=== PATIENT | female | born 1930 | race Caucasian/White ===

== ENCOUNTER 2016-10-20 15:41 | Outpatient (CLI) | payer MEDICARE, BC ==
[~2016-10-20 15:41] MED LIST: AMARYL; AMOXICILLIN 8751 TAB PO; ASPIRIN 81M81 MG/TA2 PO; BETAPACE 120MG120 MG PO; BUMEX 1MG TA1 MG/TA1 PO; COREG 25MG25 MG/TAB PO; COREG 3.123.125 MG/T PO; COREG 6.256.25 MG/TA PO; COREG12.5 MG PO; COUMADIN 1MG1 MG/TAB PO; COUMADIN 2MG2 MG/TAB PO; COUMADIN 5MG5 MG/TAB PO; COUMADIN4 MG PO; ECOTRIN325 MG PO; FORTAMET500 MG PO; GLUCOPHAGE500 MG/TAB PO; HCTZ 25MG25 MG PO; KLOR-CON M2020 MEQ PO; LAMICTAL 25MG T25 MG PO; LAMICTAL150 MG PO; LASIX 20MG TABL20 MG PO; LASIX 80MG TABL80 MG PO; LEVAQUIN 2250 MG/TAB PO; LISINOPRIL; MULTAQ400 MG PO; NEURONTIN300 MG/CAP PO; PACERONE200 MG PO; PACERONE400 MG PO; PERCOCET 325 MG1 TA2 PO; PLAVIX 75MG TAB75 MG PO; PROAIR HFA0.09 MG/AC IH; TRADJENTA5 MG PO; ULTRAM 50MG TAB50 MG PO; VYTORIN; ZAROXOLYN 2.52.5 MG PO; ZESTRIL40 MG PO; ZITHROMAX 250M250 MG PO; ZOCOR 80MG80 MG PO
[2016-10-20] MEDS ORDERED: LIPITOR 40MG TA40 MG PO (17:02)
[2016-10-20] MEDS ORDERED: VITAMIN D 50,1.25 MG PO (17:05)
[2016-10-20 17:10] VITALS: BP 141/55; PULSE 75; TEMP 98.7
[2016-10-20 17:51] LABS: PH 5 (5-8); SQUAMOUS EPITHELIAL 0-2 /hpf; URINE APPEARANCE Clear; URINE BACTERIA None Seen /hpf; URINE BILIRUBIN Negative (NEGATIVE); URINE BLOOD Negative (NEGATIVE); URINE COLOR Yellow; URINE GLUCOSE Negative (NEGATIVE); URINE KETONE Negative (NEGATIVE); URINE RBC None Seen /hpf; URINE UROBILINOGEN Negative (NEGATIVE); URINE WBC 0-2 /hpf
== END 2016-10-20 17:28 | disposition home or self-care (01) ==
LOC: EUO 15:41
PROVIDERS: Orthopaedic Surgery
DX: Z01.818 Encounter for other preprocedural examination (principal); R79.1 Abnormal coagulation profile
CPT/HCPCS: J3430

== ENCOUNTER → 2016-10-22 | Outpatient (REF) ==
[~2016-10-22] MED LIST changes: +ALMACONE 360 M360 ML PO; +DULCOLAX S10 MG/SUPP RC; +IMODIUM 2MG CAPS2 MG PO; +K-DUR20 MEQ PO; +LASIX 40MG TABL40 MG PO; +LIPITOR 40MG TA40 MG PO; +MILK OF MA400 MG/52 PO; +NORCO 325 MG-7.1 TAB PO; +TYLENOL 325MG325 MG PO; +TYLENOL SU650 MG/SUP RC; +VITAMIN D 50,1.25 MG PO; +ZAROXOLYN5 MG PO
[2016-10-22 06:16] LABS: INR 1.3 (0.8-3.0); PROTHROMBIN TIME 14.2 SECONDS (9.7-12.8)
== END ==
LOC: ZMSC 06:07
PROVIDERS: Orthopaedic Surgery
DX: Z01.89 Encounter for other specified special examinations (principal)

== ENCOUNTER → 2016-10-23 | Outpatient (REF) ==
[2016-10-23 05:05] LABS: INR 1.3 (0.8-3.0); PROTHROMBIN TIME 14.3 SECONDS (9.7-12.8)
== END ==
LOC: ZMSC 04:58
PROVIDERS: Orthopaedic Surgery
DX: Z01.89 Encounter for other specified special examinations (principal)

== ENCOUNTER → 2016-10-24 | Outpatient (REF) ==
[2016-10-24 04:26] LABS: INR 1.3 (0.8-3.0); PROTHROMBIN TIME 14.6 SECONDS (9.7-12.8)
== END ==
LOC: ZMSC 04:14
PROVIDERS: Orthopaedic Surgery
DX: Z01.89 Encounter for other specified special examinations (principal)

== ENCOUNTER 2016-11-03 09:53 | Inpatient (IN) | payer MEDICARE, BC ==
[~2016-11-03] VITALS: Ht 162.6 cm; Wt 79.3 kg
[2016-11-03] VITALS (556 sets, daily range): BP systolic 113–138; BP diastolic 49–68; PULSE 14–75; TEMP 97.7–98.4; O2SAT 75–100
[~2016-11-03 09:53] MED LIST changes: -ALMACONE 360 M360 ML PO; -DULCOLAX S10 MG/SUPP RC; -IMODIUM 2MG CAPS2 MG PO; -K-DUR20 MEQ PO; -LASIX 40MG TABL40 MG PO; -MILK OF MA400 MG/52 PO; -NORCO 325 MG-7.1 TAB PO; -TYLENOL 325MG325 MG PO; -TYLENOL SU650 MG/SUP RC; -ZAROXOLYN5 MG PO
[2016-11-03] MEDS ORDERED: NORCO 325 MG-7.1 TAB PO (10:13)
[2016-11-03] MEDS ORDERED: COUMADIN 5MG5 MG/TAB PO (10:13)
[2016-11-03 10:18] LABS: ARTERIAL BLD GAS O2 SATURATION 99.2 % (92-100); ARTERIAL BLD GAS TCO2 CT 37.9; ARTERIAL BLOOD GAS BASE EXCESS 10.1 (-2-2); ARTERIAL BLOOD GAS HCO3 36.2 meq/L (22-26); ARTERIAL BLOOD GAS pH 7.43 (7.35-7.45); OXYHEMOGLOBIN 98.1 %
[2016-11-03 10:20] LABS: ALLEN TEST YES; ALLENS TEST RESULT PASS; ATS? YES
[2016-11-03 10:43] LABS: BASO % 0.3 % (0.0-2.0); EOS # 0.2 (0.0-0.7); EOS % 2.1 % (0-4.0); GRAN # 6.1 (1.4-6.5); GRAN % 82.9 % (42.2-75.2); HEMATOCRIT 49.6 % (37.0-47.0); HEMOGLOBIN 15.5 g/dl (12.5-16.0); LYMPH # 0.5 (1.2-3.4); MEAN CELL VOLUME 98 fl (80.0-100.0); MEAN CORPUSCULAR HEMOGLOBIN 31 pg (27.0-31.0); MEAN CORPUSCULAR HGB CONC 31 g/dl (33.0-37.0); MEAN PLATELET VOLUME 10.5 fl (7.4-10.4); MONO # 0.5 (0.1-0.6); PLATELET COUNT 235 K/mm3 (130-400); RED BLOOD COUNT 5.04 M/mm3 (4.10-5.30); REDCELL DISTRIBUTION WIDTH-CV 15.9 % (11.5-14.5); WHITE BLOOD COUNT 7.3 K/mm3 (4.8-10.8)
[2016-11-03 10:45] LABS: ADJUSTED CALCIUM 9.1 mg/dL (8.4-10.2); ALBUMIN 3.5 gm/dL (3.5-5.0); BILIRUBIN,TOTAL 1.1 mg/dL (0.0-1.0); CALCIUM 8.7 mg/dL (8.4-10.2); CREATININE, serum 1.07 mg/dL (0.52-1.25); INR 3.1 (0.8-3.0); POTASSIUM 4.3 mmol/L (3.4-5.0); PROTHROMBIN TIME 35.6 SECONDS (9.7-12.8); TOTAL PROTEIN 6.9 gm/dL (6.4-8.2)
[2016-11-03 10:57] LABS: TROPONIN-I 0.022 ng/mL (0.000-0.034)
[2016-11-03] MEDS ORDERED: ALMACONE 360 M360 ML PO (15:08)
[2016-11-03] MEDS ORDERED: MILK OF MA400 MG/52 PO (15:08)
[2016-11-03] MEDS ORDERED: DULCOLAX S10 MG/SUPP RC (15:09)
[2016-11-03] MEDS ORDERED: TYLENOL SU650 MG/SUP RC (15:10)
[2016-11-03] MEDS ORDERED: TYLENOL 325MG325 MG PO (15:11)
[2016-11-03] MEDS ORDERED: IMODIUM 2MG CAPS2 MG PO (15:12)
[2016-11-04] VITALS (1211 sets, daily range): BP systolic 105–132; BP diastolic 43–83; PULSE 69–79; TEMP 97.2–98.9; O2SAT 76–100
[2016-11-04 05:45] LABS: MEAN CELL VOLUME 99 fl (80.0-100.0); MEAN CORPUSCULAR HGB CONC 31 g/dl (33.0-37.0); MEAN PLATELET VOLUME 10.6 fl (7.4-10.4); PLATELET COUNT 283 K/mm3 (130-400); RED BLOOD COUNT 3.35 M/mm3 (4.10-5.30); REDCELL DISTRIBUTION WIDTH-CV 15.7 % (11.5-14.5); WHITE BLOOD COUNT 9.4 K/mm3 (4.8-10.8)
[2016-11-04 05:47] LABS: HEMATOCRIT 33.1 % (37.0-47.0); HEMOGLOBIN 10.4 g/dl (12.5-16.0); MEAN CORPUSCULAR HEMOGLOBIN 31 pg (27.0-31.0)
[2016-11-04 05:57] LABS: CALCIUM 8.4 mg/dL (8.4-10.2); CREATININE, serum 1.2 mg/dL (0.52-1.25); MAGNESIUM 2.4 mg/dL (1.6-2.3); POTASSIUM 3.8 mmol/L (3.4-5.0)
[2016-11-04 10:59] LABS: C-REACTIVE PROTEIN 3.6 mg/dL (0.0-0.9)
[2016-11-04 13:16] LABS: INR 3.5 (0.8-3.0); PROTHROMBIN TIME 40.6 SECONDS (9.7-12.8)
[2016-11-05] VITALS (692 sets, daily range): BP systolic 107–124; BP diastolic 47–67; PULSE 69–78; TEMP 97.1–98.7; O2SAT 82–100
[2016-11-05 05:48] LABS: MEAN CELL VOLUME 99 fl (80.0-100.0); MEAN CORPUSCULAR HGB CONC 31 g/dl (33.0-37.0); MEAN PLATELET VOLUME 10.4 fl (7.4-10.4); PLATELET COUNT 322 K/mm3 (130-400); REDCELL DISTRIBUTION WIDTH-CV 15.7 % (11.5-14.5); WHITE BLOOD COUNT 8.5 K/mm3 (4.8-10.8)
[2016-11-05 05:50] LABS: HEMATOCRIT 32.8 % (37.0-47.0); HEMOGLOBIN 10.3 g/dl (12.5-16.0); MEAN CORPUSCULAR HEMOGLOBIN 31 pg (27.0-31.0)
[2016-11-05 05:53] LABS: INR 3.7 (0.8-3.0); PROTHROMBIN TIME 42.4 SECONDS (9.7-12.8)
[2016-11-05 06:16] LABS: CALCIUM 8.7 mg/dL (8.4-10.2); CREATININE, serum 1.18 mg/dL (0.52-1.25); POTASSIUM 3.9 mmol/L (3.4-5.0)
[2016-11-06] VITALS (7 sets, daily range): BP systolic 95–131; BP diastolic 41–76; PULSE 68–70; TEMP 98.1–98.6
[2016-11-06 15:19] LABS: INR 2.7 (0.8-3.0); PROTHROMBIN TIME 31.1 SECONDS (9.7-12.8)
[2016-11-07 03:59] VITALS: BP 100/75; PULSE 98; TEMP 98.9
[2016-11-07 07:43] VITALS: BP 112/79; PULSE 71; TEMP 98.2
[2016-11-07] MEDS ORDERED: NORCO 325 MG-7.1 TAB PO (08:17)
[2016-11-07] MEDS ORDERED: KLOR-CON M2020 MEQ PO (08:18)
[2016-11-07 11:18] VITALS: BP 112/79; PULSE 71; TEMP 98.2
== END 2016-11-07 11:50 | DRG 291 ==
LOC: COL.ER 09:53 → IMCU 13:03 → MEDICAL 11-05 14:35
PROVIDERS: Emergency Medicine; Family Medicine; Internal Medicine; Internal Medicine Pulmonary Disease
DX: I13.0 Hypertensive heart and chronic kidney disease with heart failure and stage 1 through stage 4 chronic kidney disease, or unspecified chronic kidney disease (principal); I50.31 Acute diastolic (congestive) heart failure; J96.01 Acute respiratory failure with hypoxia; E11.22 Type 2 diabetes mellitus with diabetic chronic kidney disease; N18.3 Chronic kidney disease, stage 3 (moderate); I27.2 Other secondary pulmonary hypertension; Z95.1 Presence of aortocoronary bypass graft; Z85.3 Personal history of malignant neoplasm of breast; Z85.42 Personal history of malignant neoplasm of other parts of uterus; Z95.2 Presence of prosthetic heart valve; Z79.01 Long term (current) use of anticoagulants
CPT/HCPCS: 99223-AI; 99232-AI; 99233-AI; 99239; A4315; J1815; J1940; Q9967

== ENCOUNTER 2016-12-14 08:59 | Inpatient (IN) | payer MEDICARE, BC ==
[2016-12-14] VITALS (634 sets, daily range): BP systolic 100–112; BP diastolic 48–55; PULSE 69–71; TEMP 98.4–98.9; O2SAT 94–100
[~2016-12-14] VITALS: Ht 165.1 cm; Wt 76.8 kg
[~2016-12-14 08:59] MED LIST changes: +ALMACONE 360 M360 ML PO; +DULCOLAX S10 MG/SUPP RC; +IMODIUM 2MG CAPS2 MG PO; +MILK OF MA400 MG/52 PO; +NORCO 325 MG-7.1 TAB PO; +TYLENOL 325MG325 MG PO; +TYLENOL SU650 MG/SUP RC
[2016-12-14 09:41] LABS: BASO % 0.2 % (0.0-2.0); GRAN # 10.7 (1.4-6.5); GRAN % 88.3 % (42.2-75.2); LYMPH # 0.5 (1.2-3.4); LYMPH % 4.4 % (20.0-51.0); MEAN CELL VOLUME 94 fl (80.0-100.0); MEAN CORPUSCULAR HGB CONC 34 g/dl (33.0-37.0); MEAN PLATELET VOLUME 11.4 fl (7.4-10.4); MONO # 0.8 (0.1-0.6); MONO % 6.7 % (1.7-9.3); PLATELET COUNT 195 K/mm3 (130-400); RED BLOOD COUNT 3.66 M/mm3 (4.10-5.30); REDCELL DISTRIBUTION WIDTH-CV 15.1 % (11.5-14.5); WHITE BLOOD COUNT 12.1 K/mm3 (4.8-10.8)
[2016-12-14 09:42] LABS: HEMATOCRIT 34.4 % (37.0-47.0); HEMOGLOBIN 11.6 g/dl (12.5-16.0); MEAN CORPUSCULAR HEMOGLOBIN 32 pg (27.0-31.0)
[2016-12-14 09:48] LABS: PARTIAL THROMBOPLASTIN TIME 51.4 SECONDS (26.0-37.0)
[2016-12-14 09:52] LABS: ADJUSTED CALCIUM 9.2 mg/dL (8.4-10.2); ALBUMIN 3.5 gm/dL (3.5-5.0); BILIRUBIN,TOTAL 0.8 mg/dL (0.0-1.0); CALCIUM 8.8 mg/dL (8.4-10.2); CREATININE, serum 1.44 mg/dL (0.52-1.25); TOTAL PROTEIN 6.9 gm/dL (6.4-8.2)
[2016-12-14 09:56] LABS: INR 5.7 (0.8-3.0); PROTHROMBIN TIME 67.5 SECONDS (9.7-12.8)
[2016-12-14 10:12] LABS: TROPONIN-I 0.122 ng/mL (0.000-0.034)
[2016-12-14] MEDS ORDERED: TRADJENTA5 MG PO (10:37)
[2016-12-14 10:42] LABS: PH 5 (5-8); SQUAMOUS EPITHELIAL 0-2 /hpf; URINE APPEARANCE Hazy; URINE BACTERIA Rare /hpf; URINE BILIRUBIN Negative (NEGATIVE); URINE BLOOD Negative (NEGATIVE); URINE COLOR Yellow; URINE GLUCOSE Negative (NEGATIVE); URINE KETONE Negative (NEGATIVE); URINE UROBILINOGEN Negative (NEGATIVE)
[2016-12-14 10:43] LABS: URINE WBC >50 /hpf
[2016-12-14] MEDS ORDERED: K-DUR20 MEQ PO (14:08)
[2016-12-14] MEDS ORDERED: ZAROXOLYN5 MG PO (16:30)
[2016-12-15] VITALS (280 sets, daily range): BP systolic 111–127; BP diastolic 48–87; PULSE 68–84; TEMP 97.8–99.1; O2SAT 89–98
[2016-12-15 08:40] LABS: MEAN CELL VOLUME 95 fl (80.0-100.0); MEAN CORPUSCULAR HGB CONC 33 g/dl (33.0-37.0); MEAN PLATELET VOLUME 11.2 fl (7.4-10.4); PLATELET COUNT 183 K/mm3 (130-400); RED BLOOD COUNT 3.67 M/mm3 (4.10-5.30); REDCELL DISTRIBUTION WIDTH-CV 15.1 % (11.5-14.5); WHITE BLOOD COUNT 9.1 K/mm3 (4.8-10.8)
[2016-12-15 08:43] LABS: ADD PATHOLOGY DIFF REVIEW NO; HEMATOCRIT 34.9 % (37.0-47.0); HEMOGLOBIN 11.4 g/dl (12.5-16.0); MEAN CORPUSCULAR HEMOGLOBIN 31 pg (27.0-31.0)
[2016-12-15 08:44] LABS: ADJUSTED CALCIUM 9.5 mg/dL (8.4-10.2); BILIRUBIN,TOTAL 0.7 mg/dL (0.0-1.0); CALCIUM 8.7 mg/dL (8.4-10.2); CREATININE, serum 1.27 mg/dL (0.52-1.25); TOTAL PROTEIN 6.3 gm/dL (6.4-8.2)
[2016-12-15 08:47] LABS: POTASSIUM 2.6 mmol/L (3.4-5.0)
[2016-12-15 08:51] LABS: INR 7.8 (0.8-3.0); PROTHROMBIN TIME 94.8 SECONDS (9.7-12.8)
[2016-12-15 09:47] LABS: BAND 22 % (0-10); NEUTROPHILS 64 % (42.0-75.2); TOTAL CELLS COUNTED 100
[2016-12-15 09:49] LABS: PLATELET ESTIMATE NORMAL (NORMAL)
[2016-12-16] VITALS (8 sets, daily range): BP systolic 114–162; BP diastolic 48–63; PULSE 64–106; TEMP 97.6–99.7
[2016-12-16 07:43] LABS: PROTHROMBIN TIME 77.7 SECONDS (9.7-12.8)
[2016-12-16 07:44] LABS: INR 6.5 (0.8-3.0)
[2016-12-17 02:46] VITALS: BP 150/60; PULSE 71; TEMP 98.6
[2016-12-17 07:55] LABS: INR 1.6 (0.8-3.0); PROTHROMBIN TIME 18.2 SECONDS (9.7-12.8)
[2016-12-17 07:57] VITALS: BP 147/53; PULSE 70; TEMP 97.8
[2016-12-17 08:13] LABS: CREATININE, serum 1.03 mg/dL (0.52-1.25); MAGNESIUM 2.7 mg/dL (1.6-2.3); POTASSIUM 3.3 mmol/L (3.4-5.0)
[2016-12-17 11:55] LABS: PARTIAL THROMBOPLASTIN TIME 31.7 SECONDS (26.0-37.0)
[2016-12-17 12:01] LABS: BASO % 0.2 % (0.0-2.0); EOS # 0.2 (0.0-0.7); EOS % 1.6 % (0-4.0); GRAN # 8.1 (1.4-6.5); LYMPH # 0.7 (1.2-3.4); LYMPH % 7.2 % (20.0-51.0); MEAN CELL VOLUME 99 fl (80.0-100.0); MEAN CORPUSCULAR HGB CONC 32 g/dl (33.0-37.0); MEAN PLATELET VOLUME 11.4 fl (7.4-10.4); MONO # 0.5 (0.1-0.6); MONO % 5.5 % (1.7-9.3); PLATELET COUNT 224 K/mm3 (130-400); RED BLOOD COUNT 3.58 M/mm3 (4.10-5.30); REDCELL DISTRIBUTION WIDTH-CV 15.4 % (11.5-14.5); WHITE BLOOD COUNT 9.5 K/mm3 (4.8-10.8)
[2016-12-17 12:04] LABS: HEMATOCRIT 35.6 % (37.0-47.0); HEMOGLOBIN 11.2 g/dl (12.5-16.0); MEAN CORPUSCULAR HEMOGLOBIN 31 pg (27.0-31.0)
[2016-12-17 12:44] VITALS: BP 113/75; PULSE 70; TEMP 98
[2016-12-17 17:00] VITALS: BP 127/55; PULSE 70; TEMP 97.3
[2016-12-17 19:30] VITALS: BP 152/64; PULSE 69; TEMP 98.3
[2016-12-17 23:06] VITALS: BP 110/48; PULSE 69; TEMP 98.4
[2016-12-18 03:53] VITALS: BP 129/52; PULSE 70; TEMP 97.8
[2016-12-18 07:54] LABS: BASO % 0.2 % (0.0-2.0); EOS # 0.2 (0.0-0.7); EOS % 2.6 % (0-4.0); GRAN # 6.6 (1.4-6.5); LYMPH # 1.1 (1.2-3.4); LYMPH % 12.7 % (20.0-51.0); MEAN CELL VOLUME 98 fl (80.0-100.0); MEAN CORPUSCULAR HGB CONC 32 g/dl (33.0-37.0); MEAN PLATELET VOLUME 11.1 fl (7.4-10.4); MONO # 0.6 (0.1-0.6); MONO % 6.7 % (1.7-9.3); PLATELET COUNT 227 K/mm3 (130-400); RED BLOOD COUNT 3.22 M/mm3 (4.10-5.30); REDCELL DISTRIBUTION WIDTH-CV 15.5 % (11.5-14.5); WHITE BLOOD COUNT 8.6 K/mm3 (4.8-10.8)
[2016-12-18 07:59] LABS: HEMATOCRIT 31.5 % (37.0-47.0); MEAN CORPUSCULAR HEMOGLOBIN 31 pg (27.0-31.0)
[2016-12-18 08:08] LABS: INR 1.6 (0.8-3.0); PROTHROMBIN TIME 17.6 SECONDS (9.7-12.8)
[2016-12-18 08:13] LABS: CALCIUM 8.6 mg/dL (8.4-10.2); CREATININE, serum 1.09 mg/dL (0.52-1.25); MAGNESIUM 2.3 mg/dL (1.6-2.3); POTASSIUM 3.2 mmol/L (3.4-5.0)
[2016-12-18 08:40] VITALS: BP 134/87; PULSE 77; TEMP 98.1
[2016-12-18 11:26] VITALS: BP 118/42; PULSE 75
[2016-12-18 15:31] VITALS: BP 114/49; PULSE 69; TEMP 98.1
[2016-12-18 20:27] VITALS: BP 134/50; PULSE 72; TEMP 97.6
[2016-12-19 00:23] VITALS: BP 132/54; PULSE 72; TEMP 98.2
[2016-12-19 04:40] VITALS: BP 122/51; PULSE 71; TEMP 97.7
[2016-12-19 07:46] VITALS: BP 125/45; PULSE 71; TEMP 97.9
[2016-12-19 09:56] LABS: MEAN CELL VOLUME 99 fl (80.0-100.0); MEAN CORPUSCULAR HGB CONC 31 g/dl (33.0-37.0); MEAN PLATELET VOLUME 10.9 fl (7.4-10.4); PLATELET COUNT 259 K/mm3 (130-400); RED BLOOD COUNT 3.42 M/mm3 (4.10-5.30); REDCELL DISTRIBUTION WIDTH-CV 15.7 % (11.5-14.5); WHITE BLOOD COUNT 8.1 K/mm3 (4.8-10.8)
[2016-12-19 09:57] LABS: HEMATOCRIT 33.8 % (37.0-47.0); HEMOGLOBIN 10.6 g/dl (12.5-16.0); MEAN CORPUSCULAR HEMOGLOBIN 31 pg (27.0-31.0)
[2016-12-19 10:15] LABS: INR 2.1 (0.8-3.0); PROTHROMBIN TIME 23.5 SECONDS (9.7-12.8)
[2016-12-19 10:20] LABS: CALCIUM 8.5 mg/dL (8.4-10.2); CREATININE, serum 1.16 mg/dL (0.52-1.25); POTASSIUM 3.8 mmol/L (3.4-5.0)
[2016-12-19 12:11] VITALS: BP 106/47; PULSE 90; TEMP 98.5
[2016-12-19 16:35] VITALS: BP 104/43; PULSE 70; TEMP 98.4
[2016-12-19 20:20] VITALS: BP 121/62; PULSE 72; TEMP 97.9
[2016-12-20 04:22] VITALS: BP 116/47; PULSE 70; TEMP 97.8
[2016-12-20 08:15] LABS: PROTHROMBIN TIME 34.6 SECONDS (9.7-12.8)
[2016-12-20 08:32] VITALS: BP 115/42; PULSE 71; TEMP 98.4
[2016-12-20 11:34] VITALS: BP 114/52; PULSE 72; TEMP 97.4
[2016-12-20 15:26] VITALS: BP 105/50; PULSE 55; TEMP 96.9
[2016-12-20 20:51] VITALS: BP 109/50; PULSE 73; TEMP 97.9
[2016-12-20 22:55] VITALS: BP 111/51; PULSE 77; TEMP 97.7
[2016-12-21 02:32] VITALS: BP 119/63; PULSE 69; TEMP 98.3
[2016-12-21 08:10] LABS: MEAN CELL VOLUME 99 fl (80.0-100.0); MEAN CORPUSCULAR HGB CONC 31 g/dl (33.0-37.0); MEAN PLATELET VOLUME 10.7 fl (7.4-10.4); PLATELET COUNT 336 K/mm3 (130-400); RED BLOOD COUNT 3.55 M/mm3 (4.10-5.30); REDCELL DISTRIBUTION WIDTH-CV 15.7 % (11.5-14.5); WHITE BLOOD COUNT 10.1 K/mm3 (4.8-10.8)
[2016-12-21 08:17] LABS: HEMOGLOBIN 10.9 g/dl (12.5-16.0); MEAN CORPUSCULAR HEMOGLOBIN 31 pg (27.0-31.0)
[2016-12-21 08:22] LABS: INR 3.4 (0.8-3.0); PROTHROMBIN TIME 39.8 SECONDS (9.7-12.8)
[2016-12-21] MEDS ORDERED: COUMADIN 2MG2 MG/TAB PO (08:52)
[2016-12-21] MEDS ORDERED: LASIX 40MG TABL40 MG PO (08:54)
[2016-12-21 09:15] VITALS: BP 120/52; PULSE 69; TEMP 97.9
[2016-12-21 10:06] VITALS: BP 120/52; PULSE 69; TEMP 97.9
== END 2016-12-21 14:13 | DRG 193 ==
LOC: COL.ER 08:59 → ICU 10:25 → MEDICAL 10:25 → ICU 11:37 → MEDICAL 12-15 05:38
PROVIDERS: Emergency Medicine; Family Medicine; Internal Medicine; Internal Medicine Interventional Cardiology; Physician Assistant
DX: J18.9 Pneumonia, unspecified organism (principal); I50.33 Acute on chronic diastolic (congestive) heart failure; N17.9 Acute kidney failure, unspecified; I13.0 Hypertensive heart and chronic kidney disease with heart failure and stage 1 through stage 4 chronic kidney disease, or unspecified chronic kidney disease; N39.0 Urinary tract infection, site not specified; I48.92 Unspecified atrial flutter; E11.22 Type 2 diabetes mellitus with diabetic chronic kidney disease; I48.0 Paroxysmal atrial fibrillation; N18.3 Chronic kidney disease, stage 3 (moderate); I25.10 Atherosclerotic heart disease of native coronary artery without angina pectoris; E87.6 Hypokalemia; G50.0 Trigeminal neuralgia; I27.2 Other secondary pulmonary hypertension; Z79.01 Long term (current) use of anticoagulants; Z95.1 Presence of aortocoronary bypass graft; Z95.2 Presence of prosthetic heart valve; Z85.3 Personal history of malignant neoplasm of breast; Z85.41 Personal history of malignant neoplasm of cervix uteri; Z95.0 Presence of cardiac pacemaker
CPT/HCPCS: 99223-AI; 99232-AI; 99233-AI; 99239; J1644; J1815; J1940; J1956; J2543; J3370; J7030; J7050

== ENCOUNTER 2017-03-27 09:29 | Emergency (ER) | payer MEDICARE, BC ==
[~2017-03-27] VITALS: Ht 165.1 cm; Wt 73.6 kg
[~2017-03-27 09:29] MED LIST changes: +K-DUR20 MEQ PO; +LASIX 40MG TABL40 MG PO; +ZAROXOLYN5 MG PO
[2017-03-27 09:37] VITALS: TEMP 98.5
[2017-03-27] MEDS ORDERED: LASIX 20MG TABL20 MG PO (09:41)
[2017-03-27] MEDS ORDERED: COUMADIN4 MG PO (09:42)
[2017-03-27 10:21] LABS: BASO % 0.3 % (0.0-2.0); EOS # 0.2 (0.0-0.7); EOS % 2.8 % (0-4.0); GRAN # 6.8 (1.4-6.5); GRAN % 79.4 % (42.2-75.2); HEMATOCRIT 36.3 % (37.0-47.0); HEMOGLOBIN 11.4 g/dl (12.5-16.0); LYMPH % 11.8 % (20.0-51.0); MEAN CELL VOLUME 98 fl (80.0-100.0); MEAN CORPUSCULAR HEMOGLOBIN 31 pg (27.0-31.0); MEAN CORPUSCULAR HGB CONC 31 g/dl (33.0-37.0); MEAN PLATELET VOLUME 10.8 fl (7.4-10.4); MONO # 0.5 (0.1-0.6); MONO % 5.5 % (1.7-9.3); PLATELET COUNT 188 K/mm3 (130-400); WHITE BLOOD COUNT 8.6 K/mm3 (4.8-10.8)
[2017-03-27 10:36] LABS: ADJUSTED CALCIUM 9.3 mg/dL (8.4-10.2); ALBUMIN 3.5 gm/dL (3.5-5.0); BILIRUBIN,TOTAL 0.6 mg/dL (0.0-1.0); CALCIUM 8.9 mg/dL (8.4-10.2); CREATININE, serum 1.36 mg/dL (0.52-1.25); POTASSIUM 3.7 mmol/L (3.4-5.0); TOTAL PROTEIN 6.7 gm/dL (6.4-8.2)
[2017-03-27 10:47] LABS: TROPONIN-I 0.015 ng/mL (0.000-0.034)
[2017-03-27 11:34] LABS: INR 2.4 (0.8-3.0); PROTHROMBIN TIME 27.3 SECONDS (9.7-12.8)
[2017-03-27 11:53] LABS: COLLECTION METHOD CLEAN CATCH
[2017-03-27 11:59] LABS: PH 7 (5-8); SQUAMOUS EPITHELIAL None Seen /hpf; URINE APPEARANCE Clear; URINE BACTERIA Rare /hpf; URINE BILIRUBIN Negative (NEGATIVE); URINE BLOOD Negative (NEGATIVE); URINE COLOR Yellow; URINE GLUCOSE Negative (NEGATIVE); URINE KETONE Negative (NEGATIVE); URINE LEUKOCYTE ESTERASE 1+ (NEGATIVE); URINE PROTEIN(semi-quant) Negative (NEGATIVE); URINE RBC 0-2 /hpf; URINE UROBILINOGEN Negative (NEGATIVE)
[2017-03-27 13:01] VITALS: BP 120/55; PULSE 80
== END 2017-03-27 13:16 | disposition home or self-care (01) ==
LOC: COL.ER 09:29
PROVIDERS: Emergency Medicine
DX: R00.0 Tachycardia, unspecified (principal); E11.22 Type 2 diabetes mellitus with diabetic chronic kidney disease; I13.0 Hypertensive heart and chronic kidney disease with heart failure and stage 1 through stage 4 chronic kidney disease, or unspecified chronic kidney disease; N18.9 Chronic kidney disease, unspecified; I50.9 Heart failure, unspecified; I25.10 Atherosclerotic heart disease of native coronary artery without angina pectoris; E78.5 Hyperlipidemia, unspecified; I27.20 Pulmonary hypertension, unspecified; Z90.710 Acquired absence of both cervix and uterus; Z90.89 Acquired absence of other organs; Z95.0 Presence of cardiac pacemaker; Z95.1 Presence of aortocoronary bypass graft; Z79.82 Long term (current) use of aspirin; Z79.01 Long term (current) use of anticoagulants

== ENCOUNTER 2017-06-21 10:05 | Inpatient (IN) | payer MEDICARE, BC ==
[~2017-06-21] VITALS: Ht 160 cm; Wt 67.4 kg
[~2017-06-21 10:05] MED LIST changes: +BUMEX0.5 MG PO
[2017-06-21 10:48] LABS: BASO % 0.4 % (0.0-2.0); EOS # 0.1 (0.0-0.7); EOS % 0.5 % (0-4.0); GRAN # 9.5 (1.4-6.5); GRAN % 84.4 % (42.2-75.2); HEMATOCRIT 37.9 % (37.0-47.0); LYMPH # 0.6 (1.2-3.4); LYMPH % 5.4 % (20.0-51.0); MEAN CELL VOLUME 98 fl (80.0-100.0); MEAN CORPUSCULAR HEMOGLOBIN 31 pg (27.0-31.0); MEAN CORPUSCULAR HGB CONC 31 g/dl (33.0-37.0); MEAN PLATELET VOLUME 10.9 fl (7.4-10.4); PLATELET COUNT 238 K/mm3 (130-400); RED BLOOD COUNT 3.85 M/mm3 (4.10-5.30); REDCELL DISTRIBUTION WIDTH-CV 14.6 % (11.5-14.5)
[2017-06-21 10:49] LABS: HEMOGLOBIN 11.8 g/dl (12.5-16.0)
[2017-06-21 10:53] LABS: INR 3.7 (0.8-3.0); PROTHROMBIN TIME 44.1 SECONDS (9.7-12.8)
[2017-06-21 11:29] LABS: ALBUMIN 3.4 gm/dL (3.5-5.0); BILIRUBIN,TOTAL 0.6 mg/dL (0.0-1.0); C-REACTIVE PROTEIN 4.7 mg/dL (0.0-0.9); CALCIUM 9.3 mg/dL (8.4-10.2); CREATININE, serum 0.78 mg/dL (0.52-1.25); POTASSIUM 3.2 mmol/L (3.4-5.0); TOTAL PROTEIN 6.5 gm/dL (6.4-8.2)
[2017-06-21 11:38] LABS: TROPONIN-I 0.017 ng/mL (0.000-0.034)
[2017-06-21] MEDS ORDERED: LASIX 80MG TABL80 MG PO (12:41)
[2017-06-21] MEDS ORDERED: K-DUR20 MEQ PO (12:41)
[2017-06-21] MEDS ORDERED: COUMADIN 3MG3 MG/TAB PO (12:42)
[2017-06-21 14:32] VITALS: BP 125/48; PULSE 70; TEMP 98.1
[2017-06-21 16:01] VITALS: BP 123/40; PULSE 70; TEMP 98.4
[2017-06-21 19:28] LABS: COLLECTION METHOD CLEAN CATCH
[2017-06-21 19:38] LABS: MUCOUS Present /lpf; PH 5 (5-8); SQUAMOUS EPITHELIAL 0-2 /hpf; URINE APPEARANCE Hazy; URINE BACTERIA Rare /hpf; URINE BILIRUBIN Negative (NEGATIVE); URINE BLOOD Negative (NEGATIVE); URINE COLOR Yellow; URINE GLUCOSE Negative (NEGATIVE); URINE KETONE Negative (NEGATIVE); URINE LEUKOCYTE ESTERASE 2+ (NEGATIVE); URINE NITRATE Negative (NEGATIVE); URINE PROTEIN(semi-quant) 1+ (NEGATIVE); URINE RBC 0-2 /hpf; URINE UROBILINOGEN Negative (NEGATIVE)
[2017-06-21 20:56] VITALS: BP 135/53; PULSE 75; TEMP 98.2
[2017-06-21 23:25] VITALS: BP 116/42; PULSE 70; TEMP 98.7
[2017-06-22] VITALS (7 sets, daily range): BP systolic 112–160; BP diastolic 45–95; PULSE 69–79; TEMP 98–98.8
[2017-06-22 06:50] LABS: BASO % 0.4 % (0.0-2.0); EOS # 0.1 (0.0-0.7); EOS % 0.9 % (0-4.0); GRAN # 7.2 (1.4-6.5); GRAN % 76.7 % (42.2-75.2); HEMATOCRIT 32.1 % (37.0-47.0); HEMOGLOBIN 9.9 g/dl (12.5-16.0); LYMPH % 10.8 % (20.0-51.0); MEAN CELL VOLUME 99 fl (80.0-100.0); MEAN CORPUSCULAR HEMOGLOBIN 30 pg (27.0-31.0); MEAN CORPUSCULAR HGB CONC 31 g/dl (33.0-37.0); MEAN PLATELET VOLUME 11.3 fl (7.4-10.4); MONO % 10.9 % (1.7-9.3); PLATELET COUNT 198 K/mm3 (130-400); RED BLOOD COUNT 3.26 M/mm3 (4.10-5.30); REDCELL DISTRIBUTION WIDTH-CV 14.6 % (11.5-14.5)
[2017-06-22 07:08] LABS: PROTHROMBIN TIME 47.3 SECONDS (9.7-12.8)
[2017-06-22 07:19] LABS: CALCIUM 9.1 mg/dL (8.4-10.2); CREATININE, serum 0.83 mg/dL (0.52-1.25); POTASSIUM 3.5 mmol/L (3.4-5.0)
[2017-06-23] VITALS (8 sets, daily range): BP systolic 11–138; BP diastolic 38–89; PULSE 69–73; TEMP 97.4–98
[2017-06-23 06:51] LABS: INR 2.4 (0.8-3.0); PROTHROMBIN TIME 28.8 SECONDS (9.7-12.8)
[2017-06-23 07:01] LABS: CALCIUM 8.9 mg/dL (8.4-10.2); CREATININE, serum 0.87 mg/dL (0.52-1.25); MAGNESIUM 1.8 mg/dL (1.6-2.3)
[2017-06-23 07:09] LABS: TROPONIN-I 0.029 ng/mL (0.000-0.034)
[2017-06-24 05:02] VITALS: BP 123/64; PULSE 69; TEMP 97.9
[2017-06-24 06:39] LABS: BASO % 0.4 % (0.0-2.0); EOS # 0.2 (0.0-0.7); EOS % 2.1 % (0-4.0); GRAN # 5.4 (1.4-6.5); GRAN % 71.1 % (42.2-75.2); LYMPH # 1.2 (1.2-3.4); LYMPH % 16.3 % (20.0-51.0); MEAN CELL VOLUME 98 fl (80.0-100.0); MEAN CORPUSCULAR HGB CONC 31 g/dl (33.0-37.0); MEAN PLATELET VOLUME 11.2 fl (7.4-10.4); MONO # 0.7 (0.1-0.6); MONO % 9.8 % (1.7-9.3); PLATELET COUNT 210 K/mm3 (130-400); RED BLOOD COUNT 3.37 M/mm3 (4.10-5.30); REDCELL DISTRIBUTION WIDTH-CV 14.7 % (11.5-14.5)
[2017-06-24 06:40] LABS: HEMATOCRIT 33.1 % (37.0-47.0); HEMOGLOBIN 10.1 g/dl (12.5-16.0); MEAN CORPUSCULAR HEMOGLOBIN 30 pg (27.0-31.0)
[2017-06-24 06:55] LABS: CALCIUM 8.9 mg/dL (8.4-10.2); CREATININE, serum 0.91 mg/dL (0.52-1.25); MAGNESIUM 1.9 mg/dL (1.6-2.3); POTASSIUM 3.5 mmol/L (3.4-5.0)
[2017-06-24 08:58] VITALS: BP 116/43; PULSE 69; TEMP 98.3
[2017-06-24 12:39] VITALS: BP 128/48; PULSE 68; TEMP 98
[2017-06-24] MEDS ORDERED: IPRATROPIUM BROM3 M1 IH (12:42)
[2017-06-24] MEDS ORDERED: TYLENOL 325MG325 MG PO (12:43)
[2017-06-24] MEDS ORDERED: LASIX 80MG TABL80 MG PO (12:43)
[2017-06-24] MEDS ORDERED: AMOXICILLIN 8751 TAB PO (12:44)
== END 2017-06-24 14:46 | DRG 194 ==
LOC: COL.ER 10:05 → MEDICAL 11:56
PROVIDERS: Family Medicine; Internal Medicine; Physician Assistant
DX: J18.9 Pneumonia, unspecified organism (principal); E44.0 Moderate protein-calorie malnutrition; I50.30 Unspecified diastolic (congestive) heart failure; I13.0 Hypertensive heart and chronic kidney disease with heart failure and stage 1 through stage 4 chronic kidney disease, or unspecified chronic kidney disease; N18.3 Chronic kidney disease, stage 3 (moderate); E11.22 Type 2 diabetes mellitus with diabetic chronic kidney disease; M25.572 Pain in left ankle and joints of left foot; E87.6 Hypokalemia; I48.0 Paroxysmal atrial fibrillation; E78.5 Hyperlipidemia, unspecified; S80.12XA Contusion of left lower leg, initial encounter; W22.8XXA Striking against or struck by other objects, initial encounter; Z95.2 Presence of prosthetic heart valve; Z79.01 Long term (current) use of anticoagulants; Z95.1 Presence of aortocoronary bypass graft; Z95.0 Presence of cardiac pacemaker; Z85.42 Personal history of malignant neoplasm of other parts of uterus; Z68.28 Body mass index [BMI] 28.0-28.9, adult
CPT/HCPCS: 99222-AI; 99233-AI; 99239; J0696; J1815; J1940

== ENCOUNTER 2017-08-25 11:15 | Inpatient (IN) | payer MEDICARE, BC ==
[~2017-08-25] VITALS: Ht 165.1 cm; Wt 60.3 kg
[~2017-08-25 11:15] MED LIST changes: +COUMADIN 3MG3 MG/TAB PO; +IPRATROPIUM BROM3 M1 IH
[2017-08-25 12:02] LABS: BASO % 0.2 % (0.0-2.0); GRAN # 12.5 (1.4-6.5); GRAN % 86.1 % (42.2-75.2); LYMPH % 6.9 % (20.0-51.0); MEAN CELL VOLUME 95 fl (80.0-100.0); MEAN CORPUSCULAR HGB CONC 32 g/dl (33.0-37.0); MEAN PLATELET VOLUME 11.4 fl (7.4-10.4); MONO # 0.9 (0.1-0.6); MONO % 6.5 % (1.7-9.3); PLATELET COUNT 291 K/mm3 (130-400); RED BLOOD COUNT 3.86 M/mm3 (4.10-5.30); REDCELL DISTRIBUTION WIDTH-CV 15.7 % (11.5-14.5)
[2017-08-25 12:05] LABS: HEMATOCRIT 36.6 % (37.0-47.0); HEMOGLOBIN 11.7 g/dl (12.5-16.0); MEAN CORPUSCULAR HEMOGLOBIN 30 pg (27.0-31.0)
[2017-08-25 12:13] LABS: ALBUMIN 3.3 gm/dL (3.5-5.0); BILIRUBIN,TOTAL 0.7 mg/dL (0.0-1.0); CALCIUM 9.2 mg/dL (8.4-10.2); CREATININE, serum 1.41 mg/dL (0.52-1.25); TOTAL PROTEIN 7.1 gm/dL (6.4-8.2)
[2017-08-25 14:07] LABS: INR 3.5 (0.8-3.0); PROTHROMBIN TIME 41.4 SECONDS (9.7-12.8)
[2017-08-25] MEDS ORDERED: COUMADIN4 MG PO (15:04)
[2017-08-25] MEDS ORDERED: LASIX 20MG TABL20 MG PO (15:05)
[2017-08-25 16:48] LABS: MAGNESIUM 2.4 mg/dL (1.6-2.3)
[2017-08-25 17:28] VITALS: BP 117/49; PULSE 96; TEMP 97.7
[2017-08-25 19:44] VITALS: BP 122/96; PULSE 72; TEMP 98.3
[2017-08-25 23:27] VITALS: BP 82/32; BP 97/62; PULSE 69; TEMP 98.5
[2017-08-26 04:18] VITALS: BP 110/45; PULSE 69; TEMP 97.6
[2017-08-26 06:39] LABS: BASO % 0.2 % (0.0-2.0); GRAN # 9.7 (1.4-6.5); GRAN % 84.9 % (42.2-75.2); LYMPH # 0.8 (1.2-3.4); LYMPH % 7.1 % (20.0-51.0); MEAN CELL VOLUME 95 fl (80.0-100.0); MEAN CORPUSCULAR HGB CONC 32 g/dl (33.0-37.0); MEAN PLATELET VOLUME 11.2 fl (7.4-10.4); MONO # 0.8 (0.1-0.6); MONO % 7.4 % (1.7-9.3); PLATELET COUNT 275 K/mm3 (130-400); RED BLOOD COUNT 3.47 M/mm3 (4.10-5.30); REDCELL DISTRIBUTION WIDTH-CV 15.8 % (11.5-14.5)
[2017-08-26 06:48] LABS: HEMATOCRIT 32.8 % (37.0-47.0); HEMOGLOBIN 10.6 g/dl (12.5-16.0); MEAN CORPUSCULAR HEMOGLOBIN 31 pg (27.0-31.0)
[2017-08-26 06:55] LABS: CALCIUM 8.7 mg/dL (8.4-10.2); CREATININE, serum 1.13 mg/dL (0.52-1.25); POTASSIUM 3.6 mmol/L (3.4-5.0)
[2017-08-26 07:07] LABS: PROTHROMBIN TIME 59.5 SECONDS (9.7-12.8)
[2017-08-26 08:26] VITALS: BP 125/40; PULSE 70; TEMP 96.4
[2017-08-26 11:57] VITALS: BP 92/45; PULSE 69; TEMP 97.6
[2017-08-26 15:40] VITALS: BP 125/60; PULSE 88; TEMP 97.6
[2017-08-26 16:09] VITALS: BP 116/43; PULSE 71; TEMP 97.4
[2017-08-26 20:07] VITALS: BP 115/42; PULSE 71; TEMP 98.1
[2017-08-27 00:07] VITALS: BP 109/41; PULSE 71; TEMP 98.1
[2017-08-27 04:35] VITALS: BP 118/44; PULSE 69; TEMP 97.8
[2017-08-27 06:49] LABS: BASO % 0.2 % (0.0-2.0); EOS # 0.1 (0.0-0.7); EOS % 0.9 % (0-4.0); GRAN # 10.1 (1.4-6.5); GRAN % 83.5 % (42.2-75.2); LYMPH # 0.9 (1.2-3.4); LYMPH % 7.7 % (20.0-51.0); MEAN CELL VOLUME 96 fl (80.0-100.0); MEAN CORPUSCULAR HGB CONC 32 g/dl (33.0-37.0); MEAN PLATELET VOLUME 11.2 fl (7.4-10.4); MONO # 0.9 (0.1-0.6); PLATELET COUNT 276 K/mm3 (130-400); RED BLOOD COUNT 3.67 M/mm3 (4.10-5.30); REDCELL DISTRIBUTION WIDTH-CV 16.2 % (11.5-14.5)
[2017-08-27 07:05] LABS: CREATININE, serum 1.02 mg/dL (0.52-1.25); HEMATOCRIT 35.3 % (37.0-47.0); HEMOGLOBIN 11.2 g/dl (12.5-16.0); MEAN CORPUSCULAR HEMOGLOBIN 31 pg (27.0-31.0); POTASSIUM 3.1 mmol/L (3.4-5.0)
[2017-08-27 07:15] LABS: INR 5.1 (0.8-3.0); PROTHROMBIN TIME 61.5 SECONDS (9.7-12.8)
[2017-08-27 07:56] VITALS: BP 124/42; PULSE 70; TEMP 98.1
[2017-08-27 11:23] VITALS: BP 126/78; PULSE 73; TEMP 97.8
[2017-08-27 15:22] VITALS: BP 122/48; PULSE 70; TEMP 98.2
[2017-08-27 19:35] VITALS: BP 133/81; PULSE 76; TEMP 97.6
[2017-08-28] VITALS (10 sets, daily range): BP systolic 112–150; BP diastolic 39–79; PULSE 69–88; TEMP 97.4–98.4
[2017-08-28 07:20] LABS: BASO % 0.2 % (0.0-2.0); EOS # 0.1 (0.0-0.7); EOS % 1.2 % (0-4.0); GRAN # 10.1 (1.4-6.5); LYMPH # 0.8 (1.2-3.4); LYMPH % 6.4 % (20.0-51.0); MEAN CELL VOLUME 96 fl (80.0-100.0); MEAN CORPUSCULAR HGB CONC 31 g/dl (33.0-37.0); MEAN PLATELET VOLUME 11.3 fl (7.4-10.4); MONO # 0.9 (0.1-0.6); MONO % 7.2 % (1.7-9.3); PLATELET COUNT 299 K/mm3 (130-400); RED BLOOD COUNT 3.56 M/mm3 (4.10-5.30); REDCELL DISTRIBUTION WIDTH-CV 16.2 % (11.5-14.5)
[2017-08-28 07:22] LABS: HEMATOCRIT 34.1 % (37.0-47.0); HEMOGLOBIN 10.7 g/dl (12.5-16.0); MEAN CORPUSCULAR HEMOGLOBIN 30 pg (27.0-31.0)
[2017-08-28 07:23] LABS: INR 4.5 (0.8-3.0)
[2017-08-28 07:26] LABS: PROTHROMBIN TIME 53.3 SECONDS (9.7-12.8)
[2017-08-28 07:33] LABS: CREATININE, serum 1.03 mg/dL (0.52-1.25)
[2017-08-28 07:41] LABS: POTASSIUM 2.9 mmol/L (3.4-5.0)
[2017-08-29 00:52] VITALS: BP 104/55; PULSE 70; TEMP 97.7
[2017-08-29 03:51] VITALS: BP 152/63; PULSE 75; TEMP 98
[2017-08-29 05:06] LABS: ARTERIAL BLD GAS O2 SATURATION 96.9 % (92-100); ARTERIAL BLD GAS TCO2 CT 38.8; ARTERIAL BLOOD GAS BASE EXCESS 9.7 (-2-2); ARTERIAL BLOOD GAS HCO3 36.9 meq/L (22-26); ARTERIAL BLOOD GAS PCO2 63.3 mmHg (35-45); ARTERIAL BLOOD GAS PO2 95.2 mmHg (80-100); ARTERIAL BLOOD GAS pH 7.38 (7.35-7.45)
[2017-08-29 06:41] LABS: ARTERIAL BLD GAS O2 SATURATION 96.5 % (92-100); ARTERIAL BLD GAS TCO2 CT 38.3; ARTERIAL BLOOD GAS BASE EXCESS 9.7 (-2-2); ARTERIAL BLOOD GAS HCO3 36.5 meq/L (22-26); ARTERIAL BLOOD GAS PCO2 60.4 mmHg (35-45); ARTERIAL BLOOD GAS PO2 90.9 mmHg (80-100)
[2017-08-29 07:42] LABS: BASO % 0.2 % (0.0-2.0); EOS # 0.2 (0.0-0.7); EOS % 1.9 % (0-4.0); GRAN # 10.9 (1.4-6.5); HEMATOCRIT 34.3 % (37.0-47.0); HEMOGLOBIN 10.8 g/dl (12.5-16.0); LYMPH # 0.8 (1.2-3.4); MEAN CELL VOLUME 97 fl (80.0-100.0); MEAN CORPUSCULAR HEMOGLOBIN 31 pg (27.0-31.0); MEAN CORPUSCULAR HGB CONC 32 g/dl (33.0-37.0); MEAN PLATELET VOLUME 11.3 fl (7.4-10.4); MONO # 0.9 (0.1-0.6); MONO % 7.1 % (1.7-9.3); PLATELET COUNT 333 K/mm3 (130-400); RED BLOOD COUNT 3.54 M/mm3 (4.10-5.30); REDCELL DISTRIBUTION WIDTH-CV 16.3 % (11.5-14.5)
[2017-08-29 07:53] LABS: CREATININE, serum 1.01 mg/dL (0.52-1.25); MAGNESIUM 2.3 mg/dL (1.6-2.3); PHOSPHOROUS 2.7 mg/dL (2.5-4.5); POTASSIUM 3.5 mmol/L (3.4-5.0)
[2017-08-29 08:28] LABS: ARTERIAL BLD GAS O2 SATURATION 94.9 % (92-100); ARTERIAL BLD GAS TCO2 CT 42.3; ARTERIAL BLOOD GAS BASE EXCESS 13.9 (-2-2); ARTERIAL BLOOD GAS HCO3 40.4 meq/L (22-26); ARTERIAL BLOOD GAS PCO2 61.3 mmHg (35-45); ARTERIAL BLOOD GAS PO2 78.1 mmHg (80-100); ARTERIAL BLOOD GAS pH 7.44 (7.35-7.45)
[2017-08-29 09:03] VITALS: BP 123/53; PULSE 69; TEMP 97.8
[2017-08-29 10:46] LABS: INR 3.7 (0.8-3.0); PROTHROMBIN TIME 44.1 SECONDS (9.7-12.8)
[2017-08-29 11:37] VITALS: BP 126/53; PULSE 71; TEMP 97.6
[2017-08-29 14:13] LABS: FOLATE (FOLIC ACID) 9.4 ng/mL (7.0-31.4)
[2017-08-29 16:21] VITALS: BP 122/70; PULSE 73; TEMP 97.6
[2017-08-29 19:42] VITALS: BP 122/51; PULSE 70; TEMP 97.6
[2017-08-30 00:18] VITALS: BP 140/51; PULSE 69; TEMP 98.3
[2017-08-30 03:51] LABS: ARTERIAL BLD GAS O2 SATURATION 97.7 % (92-100); ARTERIAL BLD GAS TCO2 CT 41.8; ARTERIAL BLOOD GAS BASE EXCESS 13.8 (-2-2); ARTERIAL BLOOD GAS HCO3 39.9 meq/L (22-26); ARTERIAL BLOOD GAS PCO2 60.5 mmHg (35-45); ARTERIAL BLOOD GAS PO2 102.7 mmHg (80-100); ARTERIAL BLOOD GAS pH 7.44 (7.35-7.45)
[2017-08-30 07:37] VITALS: BP 112/47; PULSE 71; TEMP 97.4
[2017-08-30 08:15] LABS: BASO % 0.2 % (0.0-2.0); EOS # 0.1 (0.0-0.7); EOS % 1.1 % (0-4.0); GRAN # 10.1 (1.4-6.5); LYMPH # 0.9 (1.2-3.4); LYMPH % 7.6 % (20.0-51.0); MEAN CELL VOLUME 99 fl (80.0-100.0); MEAN CORPUSCULAR HGB CONC 31 g/dl (33.0-37.0); MEAN PLATELET VOLUME 10.5 fl (7.4-10.4); MONO # 0.9 (0.1-0.6); PLATELET COUNT 317 K/mm3 (130-400); RED BLOOD COUNT 3.48 M/mm3 (4.10-5.30); REDCELL DISTRIBUTION WIDTH-CV 16.3 % (11.5-14.5)
[2017-08-30 08:17] LABS: HEMATOCRIT 34.3 % (37.0-47.0); HEMOGLOBIN 10.5 g/dl (12.5-16.0); MEAN CORPUSCULAR HEMOGLOBIN 30 pg (27.0-31.0)
[2017-08-30 08:18] LABS: INR 3.5 (0.8-3.0); PROTHROMBIN TIME 41.9 SECONDS (9.7-12.8)
[2017-08-30 08:20] LABS: CALCIUM 8.8 mg/dL (8.4-10.2); CREATININE, serum 1.03 mg/dL (0.52-1.25); MAGNESIUM 2.2 mg/dL (1.6-2.3); PHOSPHOROUS 3.3 mg/dL (2.5-4.5); POTASSIUM 3.3 mmol/L (3.4-5.0)
[2017-08-30 12:03] VITALS: BP 123/48; PULSE 102; TEMP 98.5
[2017-08-30 15:59] VITALS: BP 141/52; PULSE 70; TEMP 97.4
[2017-08-30 19:31] VITALS: BP 129/45; PULSE 69; TEMP 97.4
[2017-08-31] VITALS (7 sets, daily range): BP systolic 107–145; BP diastolic 41–66; PULSE 69–72; TEMP 97.4–98.3
[2017-08-31 06:17] LABS: BASO % 0.3 % (0.0-2.0); EOS # 0.3 (0.0-0.7); EOS % 2.1 % (0-4.0); GRAN # 10.7 (1.4-6.5); GRAN % 81.2 % (42.2-75.2); LYMPH # 1.2 (1.2-3.4); LYMPH % 9.2 % (20.0-51.0); MEAN CELL VOLUME 97 fl (80.0-100.0); MEAN CORPUSCULAR HGB CONC 31 g/dl (33.0-37.0); MEAN PLATELET VOLUME 10.4 fl (7.4-10.4); MONO # 0.8 (0.1-0.6); MONO % 6.4 % (1.7-9.3); PLATELET COUNT 379 K/mm3 (130-400); RED BLOOD COUNT 3.61 M/mm3 (4.10-5.30); REDCELL DISTRIBUTION WIDTH-CV 16.2 % (11.5-14.5)
[2017-08-31 06:20] LABS: INR 2.3 (0.8-3.0); PROTHROMBIN TIME 26.6 SECONDS (9.7-12.8)
[2017-08-31 06:22] LABS: HEMOGLOBIN 10.7 g/dl (12.5-16.0); MEAN CORPUSCULAR HEMOGLOBIN 30 pg (27.0-31.0)
[2017-08-31 06:25] LABS: CALCIUM 8.8 mg/dL (8.4-10.2); CREATININE, serum 0.94 mg/dL (0.52-1.25); POTASSIUM 3.8 mmol/L (3.4-5.0)
[2017-09-01 01:14] LABS: MYCOPLASMA IGM ANTIBODIES 0.1 (0.00-0.90)
[2017-09-01 03:11] VITALS: BP 129/44; PULSE 70; TEMP 97.7
[2017-09-01 06:24] LABS: BASO % 0.3 % (0.0-2.0); EOS # 0.2 (0.0-0.7); EOS % 1.9 % (0-4.0); GRAN # 9.7 (1.4-6.5); GRAN % 81.8 % (42.2-75.2); LYMPH % 8.6 % (20.0-51.0); MEAN CELL VOLUME 99 fl (80.0-100.0); MEAN CORPUSCULAR HGB CONC 30 g/dl (33.0-37.0); MEAN PLATELET VOLUME 10.7 fl (7.4-10.4); MONO # 0.8 (0.1-0.6); MONO % 6.5 % (1.7-9.3); PLATELET COUNT 337 K/mm3 (130-400); RED BLOOD COUNT 3.35 M/mm3 (4.10-5.30)
[2017-09-01 06:25] LABS: MEAN CORPUSCULAR HEMOGLOBIN 30 pg (27.0-31.0)
[2017-09-01 06:26] LABS: INR 1.4 (0.8-3.0); PROTHROMBIN TIME 15.7 SECONDS (9.7-12.8)
[2017-09-01 06:34] LABS: CALCIUM 8.6 mg/dL (8.4-10.2); CREATININE, serum 0.97 mg/dL (0.52-1.25)
[2017-09-01 07:28] VITALS: BP 138/49; PULSE 70; TEMP 97.9
[2017-09-01 11:08] VITALS: BP 138/43; PULSE 70; TEMP 98.5
[2017-09-01 13:36] LABS: PLEURAL FLUID RBC 8000 /mm3 (0-0); PLEURAL FLUID WBC 244 /mm3
[2017-09-01 13:41] LABS: PLEURAL FLUID APPEARANCE CLOUDY; PLEURAL FLUID COLOR OTHER
[2017-09-01 13:43] LABS: GLUCOSE,PLEURAL FLUID 157 mg/dL; TOTAL PROTEIN,PLEURAL FLUID < 2.0 gm/dL
[2017-09-01 14:32] VITALS: BP 135/65; PULSE 70; TEMP 98.1
[2017-09-01 20:33] VITALS: BP 130/59; PULSE 70; TEMP 97.7
[2017-09-02 00:26] VITALS: BP 117/46; PULSE 70; TEMP 97.3
[2017-09-02 04:12] VITALS: BP 142/53; PULSE 75; TEMP 97.4
[2017-09-02 07:13] LABS: BASO % 0.3 % (0.0-2.0); EOS # 0.1 (0.0-0.7); EOS % 1.2 % (0-4.0); GRAN # 8.4 (1.4-6.5); GRAN % 81.1 % (42.2-75.2); INR 1.4 (0.8-3.0); LYMPH % 9.4 % (20.0-51.0); MEAN CELL VOLUME 98 fl (80.0-100.0); MEAN CORPUSCULAR HGB CONC 31 g/dl (33.0-37.0); MEAN PLATELET VOLUME 10.7 fl (7.4-10.4); MONO # 0.7 (0.1-0.6); MONO % 7.1 % (1.7-9.3); PLATELET COUNT 328 K/mm3 (130-400); PROTHROMBIN TIME 15.9 SECONDS (9.7-12.8); RED BLOOD COUNT 3.18 M/mm3 (4.10-5.30)
[2017-09-02 07:15] LABS: CALCIUM 8.5 mg/dL (8.4-10.2); CREATININE, serum 1.03 mg/dL (0.52-1.25); POTASSIUM 3.9 mmol/L (3.4-5.0)
[2017-09-02 07:51] LABS: HEMATOCRIT 31.2 % (37.0-47.0); HEMOGLOBIN 9.6 g/dl (12.5-16.0); MEAN CORPUSCULAR HEMOGLOBIN 30 pg (27.0-31.0)
[2017-09-02 08:39] VITALS: BP 126/45; PULSE 70; TEMP 97.5
[2017-09-02 11:48] VITALS: BP 118/46; PULSE 70; TEMP 97.6
[2017-09-02 16:00] VITALS: BP 126/48; PULSE 69; TEMP 97.2
[2017-09-02 19:57] VITALS: BP 127/46; PULSE 71; TEMP 98.5
[2017-09-03 00:02] VITALS: BP 119/52; PULSE 73; TEMP 97.6
[2017-09-03 06:39] LABS: BASO % 0.3 % (0.0-2.0); EOS # 0.1 (0.0-0.7); EOS % 1.1 % (0-4.0); GRAN # 9.1 (1.4-6.5); GRAN % 80.7 % (42.2-75.2); LYMPH # 1.3 (1.2-3.4); LYMPH % 11.4 % (20.0-51.0); MEAN CELL VOLUME 98 fl (80.0-100.0); MEAN CORPUSCULAR HGB CONC 30 g/dl (33.0-37.0); MEAN PLATELET VOLUME 10.5 fl (7.4-10.4); MONO # 0.6 (0.1-0.6); MONO % 5.5 % (1.7-9.3); PLATELET COUNT 353 K/mm3 (130-400); RED BLOOD COUNT 3.15 M/mm3 (4.10-5.30); REDCELL DISTRIBUTION WIDTH-CV 16.5 % (11.5-14.5)
[2017-09-03 06:46] LABS: INR 1.4 (0.8-3.0); PROTHROMBIN TIME 15.7 SECONDS (9.7-12.8)
[2017-09-03 06:49] LABS: HEMATOCRIT 30.9 % (37.0-47.0); HEMOGLOBIN 9.4 g/dl (12.5-16.0); MEAN CORPUSCULAR HEMOGLOBIN 30 pg (27.0-31.0)
[2017-09-03 07:06] LABS: CALCIUM 8.6 mg/dL (8.4-10.2); POTASSIUM 3.8 mmol/L (3.4-5.0)
[2017-09-03 08:05] VITALS: BP 125/51; PULSE 74; TEMP 97.3
[2017-09-03 11:17] VITALS: BP 116/48; PULSE 69; TEMP 97.7
[2017-09-03 15:56] VITALS: BP 125/42; PULSE 69; TEMP 97.6
[2017-09-03 20:03] VITALS: BP 173/60; PULSE 70; TEMP 98.4
[2017-09-03 23:30] VITALS: BP 120/41; PULSE 70; TEMP 97.1
[2017-09-04 03:55] VITALS: BP 139/44; PULSE 69
[2017-09-04 07:31] VITALS: BP 174/60; PULSE 73; TEMP 98.2
[2017-09-04 12:05] VITALS: BP 174/59; PULSE 70; TEMP 98.2
[2017-09-04 16:24] VITALS: BP 157/47; PULSE 70; TEMP 98.5
[2017-09-04 20:43] VITALS: BP 176/65; PULSE 69; TEMP 97.4
[2017-09-04 23:46] VITALS: BP 119/51; PULSE 70; TEMP 97.4
[2017-09-05 03:57] VITALS: BP 117/40; PULSE 70; TEMP 97.3
[2017-09-05 06:45] LABS: BASO % 0.4 % (0.0-2.0); EOS # 0.2 (0.0-0.7); EOS % 2.2 % (0-4.0); GRAN # 4.7 (1.4-6.5); GRAN % 68.4 % (42.2-75.2); LYMPH # 1.5 (1.2-3.4); LYMPH % 21.6 % (20.0-51.0); MEAN CELL VOLUME 100 fl (80.0-100.0); MEAN CORPUSCULAR HGB CONC 30 g/dl (33.0-37.0); MEAN PLATELET VOLUME 10.6 fl (7.4-10.4); MONO # 0.4 (0.1-0.6); MONO % 6.5 % (1.7-9.3); PLATELET COUNT 361 K/mm3 (130-400); RED BLOOD COUNT 3.03 M/mm3 (4.10-5.30); REDCELL DISTRIBUTION WIDTH-CV 16.8 % (11.5-14.5)
[2017-09-05 06:54] LABS: HEMATOCRIT 30.4 % (37.0-47.0); HEMOGLOBIN 9.1 g/dl (12.5-16.0); MEAN CORPUSCULAR HEMOGLOBIN 30 pg (27.0-31.0)
[2017-09-05 07:05] LABS: CALCIUM 8.6 mg/dL (8.4-10.2); CREATININE, serum 1.15 mg/dL (0.52-1.25); MAGNESIUM 2.5 mg/dL (1.6-2.3); POTASSIUM 3.2 mmol/L (3.4-5.0)
[2017-09-05 07:17] LABS: INR 1.7 (0.8-3.0); PROTHROMBIN TIME 19.3 SECONDS (9.7-12.8)
[2017-09-05 07:38] VITALS: BP 130/53; PULSE 69; TEMP 97.6
[2017-09-05] MEDS ORDERED: LOVENOX 6060 MG/0.6 SQ (08:53)
[2017-09-05] MEDS ORDERED: SEROQUEL 2525 MG/TAB PO ×2 (08:54→08:55)
[2017-09-05] MEDS ORDERED: COUMADIN 3MG3 MG/TAB PO (08:54)
[2017-09-05] MEDS ORDERED: B-121000 MCG PO (08:55)
[2017-09-05] MEDS ORDERED: LASIX 40MG TABL40 MG PO (08:55)
[2017-09-05] MEDS ORDERED: FOLIC ACID 11 MG/TA1 PO (08:55)
[2017-09-05 11:45] VITALS: BP 130/53; PULSE 69; TEMP 97.6
[2017-09-05 11:56] VITALS: BP 116/50; PULSE 70; TEMP 97.3
== END 2017-09-05 14:20 | DRG 194 ==
LOC: COL.ER 11:15 → MEDICAL 13:48
PROVIDERS: Emergency Medicine; Internal Medicine; Internal Medicine Pulmonary Disease; Nurse Practitioner Family; Physician Assistant
PROC: 0W9B3ZX Drainage of Left Pleural Cavity, Percutaneous Approach, Diagnostic (ICD-10-PCS; principal; 2017-09-01)
PROC: 0W9B3ZZ Drainage of Left Pleural Cavity, Percutaneous Approach (ICD-10-PCS; 2017-09-01)
DX: J18.0 Bronchopneumonia, unspecified organism (principal); J90 Pleural effusion, not elsewhere classified; N17.9 Acute kidney failure, unspecified; I13.0 Hypertensive heart and chronic kidney disease with heart failure and stage 1 through stage 4 chronic kidney disease, or unspecified chronic kidney disease; I50.32 Chronic diastolic (congestive) heart failure; I47.2 Ventricular tachycardia; R64 Cachexia; E11.22 Type 2 diabetes mellitus with diabetic chronic kidney disease; N18.3 Chronic kidney disease, stage 3 (moderate); Z95.1 Presence of aortocoronary bypass graft; Z95.0 Presence of cardiac pacemaker; I27.22 Pulmonary hypertension due to left heart disease; I25.10 Atherosclerotic heart disease of native coronary artery without angina pectoris; Z95.2 Presence of prosthetic heart valve; Z79.01 Long term (current) use of anticoagulants; I48.0 Paroxysmal atrial fibrillation; E87.6 Hypokalemia; I08.3 Combined rheumatic disorders of mitral, aortic and tricuspid valves; Z85.42 Personal history of malignant neoplasm of other parts of uterus
CPT/HCPCS: 99222-AI; 99231-AI; 99232-AI; 99233-AI; 99239; G8996-GN; G8997-GN; G8998-GN; J1630; J1650; J1815; J1940; J1956; J2060; J2543; J3370; J3420; J3480; J7030; J7040; J7050; Q9967

== ENCOUNTER → 2017-09-14 | Outpatient (REF) ==
[~2017-09-14] MED LIST changes: +ANUSOL-HC2.5% RC; +B-121000 MCG PO; +CLEOCIN HCL300 MG PO; +FOLIC ACID 11 MG/TA1 PO; +IMODIUM A-D2 MG PO; +K-TAB20 PO; +LOVENOX 6060 MG/0.6 SQ; +LOVENOX 8080 MG/0.8 SQ; +SEROQUEL 2525 MG/TAB PO; +TOPROL XL 25MG25 MG PO
[2017-09-14 11:09] LABS: CALCIUM 8.8 mg/dL (8.4-10.2); CREATININE, serum 1.32 mg/dL (0.52-1.25)
== END ==
LOC: ZCOL.LAB 10:16
PROVIDERS: Family Medicine
DX: I50.30 Unspecified diastolic (congestive) heart failure (principal)

== ENCOUNTER → 2017-09-21 | Outpatient (CLI) | payer MEDICARE, BC | LOC: COL.RAD 11:30 | DX: Z01.89 Encounter for other specified special examinations (principal) ==

== ENCOUNTER → 2017-09-23 | Outpatient (CLI) | payer MEDICARE, BC | LOC: COL.RAD 15:36 | DX: M25.751 Osteophyte, right hip (principal) ==